=== PATIENT | male | born 1975 | race Caucasian/White ===

== ENCOUNTER 2024-01-12 06:15 | Emergency (ER) | payer OTHER ==
[~2024-01-12] VITALS: Ht 172.7 cm; Wt 112.5 kg
[2024-01-12] MEDS ORDERED: Robaxin750 MG PO (06:39)
[2024-01-12] MEDS ORDERED: METPRE4DP PO (06:39)
== END 2024-01-12 06:48 | disposition home or self-care (01) ==
LOC: ER 06:15
DX: S29.012A Strain of muscle and tendon of back wall of thorax, initial encounter (principal); X50.0XXA Overexertion from strenuous movement or load, initial encounter; Z79.899 Other long term (current) drug therapy
CPT/HCPCS: 99283

== ENCOUNTER 2024-09-17 12:49 | Inpatient (IN) | payer OTHER ==
[~2024-09-17] VITALS: Ht 175.3 cm; Wt 109.4 kg
[~2024-09-17 12:49] MED LIST changes: -ASPI81CH PO; -ATOR20 PO; -AZMIRO200 MG/1 M IM; -BAYER BACK & BODY PO; -METO100ER PO
[2024-09-17] MEDS ORDERED: Aspirin 325 MG Tab PO ONE (13:15)
[2024-09-17 13:26] LABS: BASOPHILS ABSOLUTE AUTO 0.06 K/mm3 (0.00-0.23); BASOPHILS PERCENT AUTO 1 % (0-2); EOSINOPHILS ABSOLUTE AUTO 0.33 K/mm3 (0.00-0.68); EOSINOPHILS PERCENT AUTO 4 % (0-6); Hematocrit 48.7 % (37.0-53.0); Hemoglobin 16.5 g/dL (13.5-17.5); IMMATURE GRAN ABSOLUTE AUTO 0.03 K/mm3 (0.00-0.10); IMMATURE GRAN PERCENT AUTO 0 % (0-1); LYMPHOCYTES ABSOLUTE AUTO 2.54 K/mm3 (0.84-5.20); LYMPHOCYTES PERCENT AUTO 27 % (21-46); MONOCYTES ABSOLUTE AUTO 0.78 K/mm3 (0.16-1.47); MONOCYTES PERCENT AUTO 8 % (4-13); Mean Corpuscular HGB Conc 33.9 g/dL (31.5-36.5); Mean Corpuscular Volume 91 fL (80-100); Mean Platelet Volume 10.6 fL (9.1-12.4); NEUTROPHILS ABSOLUTE AUTO 5.67 K/mm3 (1.96-9.15); NEUTROPHILS PERCENT AUTO 60 % (41-73); Platelet Count 261 K/mm3 (150-400); RDW Standard Deviation 43.3 fL (35.1-46.3); Red Blood Cell Count 5.33 M/mm3 (4.30-5.90); White Blood Cell Count 9.41 K/mm3 (4.00-11.30)
[2024-09-17 13:52] LABS: Albumin/Globulin Ratio 1.2 (0.8-1.8); Bilirubin, Total 1.1 mg/dL (0.1-1.0); Bun/Creatinine Ratio 19.9 (12.0-20.0); Creatinine, Blood 0.9 mg/dL (0.60-1.20); Globulin, Blood 3.3 g/dL (2.2-4.0); Potassium, Blood 3.8 mmol/L (3.5-5.5); Total Protein, Blood 7.3 g/dL (6.4-8.2)
[2024-09-17] MEDS ORDERED: BAYER BACK & BODY PO (15:11)
[2024-09-17] MEDS ORDERED: FLU VACC TS2024-25(6MOS UP)/PF 45 MCG/0.5 ML SYRINGE IM SCH (16:05)
[2024-09-17] MEDS ORDERED: NS 1,000 ML IV SCH (17:05)
[2024-09-17] MEDS ORDERED: AZMIRO200 MG/1 M IM (17:23)
[2024-09-17 17:27] LABS: Anti-Xa UFH, PHA Monitoring <0.10 IU/mL; International Normalized Ratio 1.09; Prothrombin Time Results 11.6 Sec (9.7-11.5)
[2024-09-17] MEDS ORDERED: Dose Adjust by Pharmacy XX STA (17:42)
[2024-09-17] MEDS ORDERED: Heparin Sodium,Porcine/0.5 NS 500 ML IV SCH (17:45)
[2024-09-17] MEDS ORDERED: Heparin Sodium 5000 Units/ML 1ML MDV IV ONE (17:45)
[2024-09-17 18:09] LABS: CHOL/HDL RATIO 4.8; Cholesterol 177 mg/dL (50-200); HDL Cholesterol 37 mg/dL (>39); LDL/HDL RATIO 3.3; Low Density Lipoprotein Chol 122 mg/dL (0-110); Triglycerides 88 mg/dL (30-160); Very Low Density Lipoprot Chol 17 mg/dL (6-32)
--- NOTE | 2024-09-17 18:53 | NUR ---
Pt admitted to PCU 5; He is alert, oriented and states at this time he is having no discomfort/pain. Heparin gtt started after IV bolus per orders. He said that Dr. Stewart saw him in the ED and said that he should be NPO after midnight, because he is having an angiogram tomorrow morning/later morning. Pt states that he is on a high meat diet, with no vegetables. STates that once he stopped eating vegetables his arthritic pain and his IBS problems disappeared. Instructed patient to call if he experiences any symptoms to call. he verbalized understanding.
[2024-09-17 20:25] VITALS: BP 125/72
[2024-09-18] VITALS (11 sets, daily range): BP systolic 124–166; BP diastolic 68–130
[2024-09-18] MEDS ORDERED: Dose Adjust by Pharmacy XX STA (01:58)
[2024-09-18] MEDS ORDERED: Heparin Sodium 5000 Units/ML 1ML MDV IV ONE (02:00)
[2024-09-18 03:01] LABS: BASOPHILS ABSOLUTE AUTO 0.08 K/mm3 (0.00-0.23); BASOPHILS PERCENT AUTO 1 % (0-2); EOSINOPHILS ABSOLUTE AUTO 0.49 K/mm3 (0.00-0.68); EOSINOPHILS PERCENT AUTO 5 % (0-6); Hematocrit 48.6 % (37.0-53.0); Hemoglobin 15.9 g/dL (13.5-17.5); IMMATURE GRAN ABSOLUTE AUTO 0.02 K/mm3 (0.00-0.10); IMMATURE GRAN PERCENT AUTO 0 % (0-1); LYMPHOCYTES ABSOLUTE AUTO 2.77 K/mm3 (0.84-5.20); LYMPHOCYTES PERCENT AUTO 29 % (21-46); MONOCYTES ABSOLUTE AUTO 0.91 K/mm3 (0.16-1.47); MONOCYTES PERCENT AUTO 10 % (4-13); Mean Corpuscular HGB 29.9 pg (26.0-34.0); Mean Corpuscular HGB Conc 32.7 g/dL (31.5-36.5); Mean Corpuscular Volume 91 fL (80-100); Mean Platelet Volume 10.8 fL (9.1-12.4); NEUTROPHILS ABSOLUTE AUTO 5.27 K/mm3 (1.96-9.15); NEUTROPHILS PERCENT AUTO 55 % (41-73); Platelet Count 252 K/mm3 (150-400); RDW Coefficient Variation 13.1 % (11.7-14.2); RDW Standard Deviation 44.4 fL (35.1-46.3); Red Blood Cell Count 5.32 M/mm3 (4.30-5.90); White Blood Cell Count 9.54 K/mm3 (4.00-11.30)
[2024-09-18 03:24] LABS: Bun/Creatinine Ratio 16.7 (12.0-20.0); Calcium, Blood 8.4 mg/dL (8.5-10.1); Creatinine, Blood 0.96 mg/dL (0.60-1.20); Potassium, Blood 4.1 mmol/L (3.5-5.5)
--- NOTE | 2024-09-18 06:37 | NUR ---
SHIFT SUMMARY: PT IS A&OX4, PLEASANT AND COOPERATIVE WITH CARE. VSS ON RA. SR IN THE 80'S, MOSTLY ST IN THE 100'S, RANDOMLY GOES INTO SVT IN THE 150'S. THIS HAPPENS WHILE PT IS SLEEPING BUT WHEN HE WAKES HE SAYS HIS HEART FEELS LIKE IT IS FLUTTERING. PT IS ABLE TO DECREASE HR WITH THE VALSALVA MANEUVER. HEPARIN GTT INFUSING PER ORDERS. DENIES PAIN. TOLERATING A HEART HEALTHY DIET, NPO AFTER MN FOR ANGIOGRAM. VOIDING ADEQUATE AMOUNTS OF YELLOW URINE, IN URINAL INDEPENDENTLY. NO BM THIS SHIFT. BED IN LOWEST POSITION, CALL LIGHT WITHIN REACH. CALLS APPROPRIATELY AND IS ABLE TO ADVOCATE NEEDS EFFECTIVELY.
[2024-09-18] MEDS ORDERED: Verapamil HCL 2.5 MG/ML 2ML Injection ONE (08:18)
[2024-09-18] MEDS ORDERED: Heparin Sodium 1000 Units/ML 10ML MDV ONE ×2 (08:18→09:10)
[2024-09-18] MEDS ORDERED: NS 250 ML IV ONE (08:18)
[2024-09-18] MEDS ORDERED: NS 1,000 ML IV ONE ×2 (08:18→08:33)
[2024-09-18] MEDS ORDERED: Nitroglycerin 2 MG/20 ML BTL ONE (08:19)
[2024-09-18] MEDS ORDERED: FentaNYL Citrate 50 MCG/ML 2 ML Injection ONE (08:32)
[2024-09-18] MEDS ORDERED: Midazolam HCl 1MG / ML 2ML Vial ONE (08:33)
--- NOTE | 2024-09-18 08:59 | NUR ---
0830 Call to pharmacy to let them know that the pt is going to cardiac cath lab technologist so heparin was paused.
[2024-09-18] MEDS ORDERED: Metoprolol Succinate 25 MG TABCR PO SCH (09:00)
[2024-09-18] MEDS ORDERED: Aspirin 81 MG Chew PO SCH (09:00)
[2024-09-18] MEDS ORDERED: Atorvastatin 40 MG Tab PO SCH (09:00)
--- NOTE | 2024-09-18 09:05 | NUR ---
0740 Alerted by hot car charger Nicole that the pt was in SVT 160 bpm. Pt was sitting on the side of the bed, which he said he did as soon as he heard the alarm on the bedside phototypesetting equipment monitor. Said that he could feel his heart pounding. Otherwise he was asymptomatic. He blew on the syringe twice and it resolved quickly. His blood pressure was normal.
[2024-09-18] MEDS ORDERED: Metoprolol Succinate 25 MG TABCR PO STA (09:43)
--- NOTE | 2024-09-18 10:05 | NUR ---
0945 Pt is back to PCU 5; TR band in place over the right radial artery. Initially pt had said that his thumb on right hand felt cold but at this time he denies any pain/numbness/cold sensation. Good circulation noted in the right hand with SPo2 pleth good on the right hand index finger. 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 Pt was provided with food and drink.
--- NOTE | 2024-09-18 14:00 | NUR ---
TR band was removed. The right arterial access site is without bleeding, bruising, hematoma. Pt denies any pain at the site. Cleaned with alcohol swab and clear tegederm dressing applied. Pt educated on TR band recovery, activity restrictions and given written instructions for the same. His is at bedside. White immobilizer board in place for 24 hours. vital signs are stable. Normal sinus rhythm by telemetry noted, no further episodes of SVT. Call from Dr. Stewart and discussed pt's concern about atorvastatin. Pt states that he has heard about bad side effects from it. New order received for lower dose; pt was educated on the need for statin due to his coronary arterial disease, and he agreed to take the lower dose of statin as recommended by cardiology.
--- NOTE | 2024-09-18 16:42 | NUR ---
the pt had an uneventful recovery after his angiogram. Right radial site remains WNL without complications. He has had stable vital signs without any SVT the rest of the shift. Tolerating Toprol XL and blood pressure is stable.
[2024-09-18] MEDS ORDERED: Metoprolol Succinate 25 MG TABCR PO ONE (19:00)
--- NOTE | 2024-09-18 20:26 | NUR ---
[place] of care: Report received from day RN. Patient is alert, orientated. States no pain. Right arm angio site is soft. Arm board is on. No bleeding noted. No chest pain reported. Continue Care.
[2024-09-18] MEDS ORDERED: Atorvastatin 10 MG Tab PO SCH (21:00)
[2024-09-19 00:34] VITALS: BP 148/77
[2024-09-19 04:09] VITALS: BP 167/82
[2024-09-19 04:41] LABS: BASOPHILS ABSOLUTE AUTO 0.06 K/mm3 (0.00-0.23); BASOPHILS PERCENT AUTO 1 % (0-2); EOSINOPHILS ABSOLUTE AUTO 0.53 K/mm3 (0.00-0.68); EOSINOPHILS PERCENT AUTO 5 % (0-6); Hematocrit 46.9 % (37.0-53.0); Hemoglobin 15.7 g/dL (13.5-17.5); IMMATURE GRAN ABSOLUTE AUTO 0.04 K/mm3 (0.00-0.10); IMMATURE GRAN PERCENT AUTO 0 % (0-1); LYMPHOCYTES ABSOLUTE AUTO 1.68 K/mm3 (0.84-5.20); LYMPHOCYTES PERCENT AUTO 15 % (21-46); MONOCYTES ABSOLUTE AUTO 1.21 K/mm3 (0.16-1.47); MONOCYTES PERCENT AUTO 11 % (4-13); Mean Corpuscular HGB Conc 33.5 g/dL (31.5-36.5); Mean Corpuscular Volume 93 fL (80-100); Mean Platelet Volume 10.8 fL (9.1-12.4); NEUTROPHILS ABSOLUTE AUTO 7.79 K/mm3 (1.96-9.15); NEUTROPHILS PERCENT AUTO 69 % (41-73); Platelet Count 243 K/mm3 (150-400); RDW Coefficient Variation 13.3 % (11.7-14.2); RDW Standard Deviation 45.2 fL (35.1-46.3); Red Blood Cell Count 5.07 M/mm3 (4.30-5.90); White Blood Cell Count 11.31 K/mm3 (4.00-11.30)
[2024-09-19 05:09] LABS: Calcium, Blood 8.7 mg/dL (8.5-10.1); Creatinine, Blood 0.79 mg/dL (0.60-1.20); Potassium, Blood 4.1 mmol/L (3.5-5.5)
--- NOTE | 2024-09-19 06:15 | NUR ---
Patient slept most of night without any SVT. Patient did go into SVT at 0557. Heart rate up in the high 140's and up to 150. Patient states he can feel his heart beating fast but appears comfortable. Gave patient his scheduled 100 mg Metoprolol. Right wrist site from angiogram is soft to touch. No redness noted. Arm band on until 1030 this morning to remind patient not to use wrist. Significant other here this morning. Plan to discharge to home when medically stable. Continue Care.
[2024-09-19] MEDS ORDERED: Metoprolol Succinate 50 MG TABCR PO SCH ×2 (07:00→09:00)
[2024-09-19 08:07] VITALS: BP 137/89
[2024-09-19 12:11] VITALS: BP 148/95
[2024-09-19] MEDS ORDERED: ASPI81CH PO (12:34)
[2024-09-19] MEDS ORDERED: METO100ER PO (12:35)
[2024-09-19] MEDS ORDERED: ATOR20 PO (12:35)
--- NOTE | 2024-09-19 12:53 | NUR ---
DISCHARGE UPDATE DISCHARGE PACKET GONE OVER WITH PT AND PT AT 1240. PT DISCHARGED AT 1258, PT DECLINED WHEELCHAIR. PT ON RA AND ABLE TOAMBULATE TO HIS VEHICLE ON HIS OWN, TOLERATED WELL. DISCHARGE PACKET AND PERSONAL BELONGINGS WITH PT AT TIME OF DISCAHRGE. RADIAL SITE C/D/I AND ARM BOARD IN PLACE.
== END 2024-09-19 13:00 | disposition home or self-care (01) | DRG 281 ==
LOC: ER 12:49 → PCU 16:01
PROVIDERS: Physician Assistant; Student in an Organized Health Care Education/Training Program; ADMIT Internal Medicine
PROC: 4A023N7 Measurement of Cardiac Sampling and Pressure, Left Heart, Percutaneous Approach (ICD-10-PCS; principal; 2024-09-18)
PROC: B2111ZZ Fluoroscopy of Multiple Coronary Arteries using Low Osmolar Contrast (ICD-10-PCS; 2024-09-18)
DX: I21.4 Non-ST elevation (NSTEMI) myocardial infarction (principal); I42.2 Other hypertrophic cardiomyopathy; I47.10 Supraventricular tachycardia, unspecified; I25.119 Atherosclerotic heart disease of native coronary artery with unspecified angina pectoris; I10 Essential (primary) hypertension; E78.5 Hyperlipidemia, unspecified; Z87.891 Personal history of nicotine dependence; H40.9 Unspecified glaucoma; Z95.5 Presence of coronary angioplasty implant and graft
CPT/HCPCS: 36415; 71046; 76937; 80048; 80053; 80061; 83036; 83690; 83735; 83880; 84484; 85025; 85347; 85520; 85610; 85730; 93005; 93010; 93246; 93306; 93458; 93571; 99152; 99153; 99285-25; A9270; C1769; C1887; C1894; J1644; J2250; J3010; J7030; J7050; Q9967

== ENCOUNTER → 2024-09-17 | Outpatient (CLI) | payer OTHER ==
[~2024-09-17] MED LIST: ASPI81CH PO; ATOR20 PO; AZMIRO200 MG/1 M IM; BAYER BACK & BODY PO; METO100ER PO; METPRE4DP PO; Robaxin750 MG PO
== END ==
LOC: LAB 12:27 → LAB SHORT 12:27
DX: R94.31 Abnormal electrocardiogram [ECG] [EKG] (principal)
CPT/HCPCS: 84484

== ENCOUNTER 2025-05-21 09:44 | Emergency (ER) | payer OTHER ==
[~2025-05-21] VITALS: Ht 175.3 cm; Wt 101.6 kg
[~2025-05-21 09:44] MED LIST changes: +ASPI81CH PO; +ATOR20 PO; +AZMIRO200 MG/1 M IM; +BAYER BACK & BODY PO; +METO100ER PO
[2025-05-21] MEDS ORDERED: Amoxicillin500 MG PO (12:08)
== END 2025-05-21 12:22 | disposition home or self-care (01) ==
LOC: ER 09:44
DX: H66.92 Otitis media, unspecified, left ear (principal); M25.561 Pain in right knee; I10 Essential (primary) hypertension; I42.2 Other hypertrophic cardiomyopathy; Z95.5 Presence of coronary angioplasty implant and graft; Z79.890 Hormone replacement therapy; Z79.82 Long term (current) use of aspirin; Z79.899 Other long term (current) drug therapy
CPT/HCPCS: 73562-RT; 99283-25